=== PATIENT | male | born 1955 ===

== ENCOUNTER 2018-05-13 09:36 | Emergency (ER) | payer BC ==
--- NOTE | 2018-05-13 10:07 | UC ---
Throat Pain/Nasal Dimas HPI - HPI Summary HPI Summary: Patient presents with 12 hour onset of throat pain. He states the pain is worse with swallowing. He states he is able to eat, drink and handle his own secretions. He denies any fever, chills, chest congestion, coughing, or shortness of breath. He has been taking honey, and herbal tea with mild temporary relief. - History of Current Complaint Chief Complaint: UCGeneralIllness Stated Complaint: THROAT PAIN Time Seen by Provider: 05/13/18 09:59 Hx Obtained From: Patient Onset/Duration: Gradual Onset Severity: Moderate Pain Intensity: 5 Cough: Nonproductive - Epiglottits Risk Factors Epiglottis Risk Factors: Negative - Allergies/Home Medications Allergies/Adverse Reactions: Allergies Allergy/AdvReac Type Severity Reaction Status Date / Time No Known Allergies Allergy Verified 05/13/18 09:46 Home Medications: Home Medications NK [No Home Medications Reported] 05/13/18 [History Confirmed 05/13/18] PMH/Surg Hx/FS Hx/Imm Hx Previously Healthy: Yes - Surgical History Surgical History: None - Family History Known Family History: Positive: Hypertension - Social History Occupation: Employed Full-time Lives: Alone Alcohol Use: Daily Alcohol Amount: 1-2 glasses of wine daily Substance Use Type: None Smoking Status (MU): Never Smoked Tobacco Have You Smoked in the Last Year: No Review of Systems Constitutional: Negative Skin: Negative Eyes: Negative ENT: Sore Throat Respiratory: Negative Cardiovascular: Negative Gastrointestinal: Negative Genitourinary: Negative Motor: Negative Neurovascular: Negative Musculoskeletal: Negative Neurological: Negative Psychological: Negative Is Patient Immunocompromised?: No All Other Systems Reviewed And Are Negative: Yes Physical Exam Triage Information Reviewed: Yes Appearance: Well-Appearing Vital Signs: Initial Vital Signs Temp 97 F 05/13/18 09:40 Pulse 89 05/13/18 09:40 Resp 14 05/13/18 09:40 BP 120/83 05/13/18 09:40 Pulse Ox 99 05/13/18 09:40 Vital Signs Reviewed: Yes Eye Exam: Normal ENT: Positive: Pharyngeal erythema Neck exam: Normal Respiratory Exam: Normal Respiratory: Positive: Lungs clear Cardiovascular Exam: Normal Cardiovascular: Positive: RRR Musculoskeletal Exam: Normal Neurological Exam: Normal Skin Exam: Normal Throat Pain/Nasal Course/Dx - Course Course Of Treatment: Patient presents wtih complaints of sore throat. VSS. Rapid step was negative. Findings ae most consistent with viral pharyngitis. Conservative measure employed, of tyelenol, advil, throat lozengers, and rest. If symtpoms worsned, persist, or other concerns develop he was told to seek re- evaluation either at his PCP, or return to the clinic. He verbalized understanding of and in agreement with the discharge plan. - Differential Dx/Diagnosis Differential Diagnosis/HQI/PQRI: Pharyngitis Provider Diagnoses: pharyngitis Discharge - Sign-Out/Discharge Documenting (check all that apply): Patient Departure All imaging exams completed and their final reports reviewed: No Studies - Discharge Plan Condition: Stable Disposition: HOME Patient Education Materials: Pharyngitis (ED), Viral Syndrome (ED) Referrals: No Primary Care Phys,NOPCP [Primary Care Provider] - - Billing Disposition and Condition Condition: STABLE Disposition: Home - Attestation Statements Document Initiated by Scribe: No
== END 2018-05-13 10:30 | disposition home or self-care (01) ==
LOC: UCEAST 09:36
DX: J02.9 Acute pharyngitis, unspecified (principal)
CPT/HCPCS: 87651; 99201; G0463